=== PATIENT | female | born 1975 | race Caucasian/White ===

== ENCOUNTER → 2023-08-09 16:30 | Outpatient (REF) | payer OTHER, SELFPAY | LOC: RAD 16:30 | PROVIDERS: ATTENDING PHYSICIAN Student in an Organized Health Care Education/Training Program | DX: R22.31 Localized swelling, mass and lump, right upper limb (principal) | CPT/HCPCS: 76882 ==

== ENCOUNTER → 2023-11-20 15:40 | Outpatient (REF) | payer OTHER, SELFPAY | LOC: RAD 15:40 | PROVIDERS: ATTENDING PHYSICIAN Student in an Organized Health Care Education/Training Program | DX: M25.471 Effusion, right ankle (principal) | CPT/HCPCS: 93971 ==

== ENCOUNTER → 2023-12-21 19:14 | Outpatient (REF) | payer OTHER, SELFPAY | LOC: MRI 3T 19:14 | PROVIDERS: ATTENDING PHYSICIAN Orthopaedic Surgery; FAMILY PHYSICIAN Student in an Organized Health Care Education/Training Program | DX: M25.561 Pain in right knee (principal); M23.91 Unspecified internal derangement of right knee | CPT/HCPCS: 73721 ==

== ENCOUNTER 2024-01-02 06:32 | Outpatient (RCR) | payer OTHER, SELFPAY | END 2024-01-02 23:59 | disposition home or self-care (01) | LOC: RPT 06:32 | PROVIDERS: ATTENDING PHYSICIAN Orthopaedic Surgery; FAMILY PHYSICIAN Student in an Organized Health Care Education/Training Program | DX: M25.551 Pain in right hip (principal); Z73.6 Limitation of activities due to disability; R26.89 Other abnormalities of gait and mobility; M25.561 Pain in right knee; R20.0 Anesthesia of skin | CPT/HCPCS: 97010; 97110; 97162 ==

== ENCOUNTER 2024-01-16 06:34 | Outpatient (RCR) | payer OTHER, SELFPAY | END 2024-01-16 08:37 | disposition home or self-care (01) | LOC: RPT 06:34 | PROVIDERS: ATTENDING PHYSICIAN Orthopaedic Surgery; FAMILY PHYSICIAN Student in an Organized Health Care Education/Training Program | DX: M25.551 Pain in right hip (principal); Z73.6 Limitation of activities due to disability; R26.89 Other abnormalities of gait and mobility; M25.561 Pain in right knee | CPT/HCPCS: 97010; 97110 ==

== ENCOUNTER 2024-04-17 06:33 | Day surgery (SDC) | payer OTHER, SELFPAY ==
[2024-04-11 12:59] VITALS: BMI 46.7
[2024-04-17] VITALS (11 sets, daily range): BP systolic 133–172; BP diastolic 79–99; BMI 46.7
[2024-04-17] MEDS: TYLENOL 1000 MG PO (11:48)
[2024-04-17] MEDS: CELEBREX 200 MG PO (11:48)
[2024-04-17] MEDS: NORMOSOL-R/PLASMALYTE-A 1000 IV (12:49)
[2024-04-17] MEDS: SUBLIMAZE 50 MCG IV ×2 (14:56→15:06)
[2024-04-17] MEDS: ROXICODONE 5 MG PO (16:30)
== END 2024-04-17 18:19 | disposition home or self-care (01) ==
LOC: SDS 06:33
PROVIDERS: ATTENDING PHYSICIAN Orthopaedic Surgery; FAMILY PHYSICIAN Student in an Organized Health Care Education/Training Program
DX: S83.231A Complex tear of medial meniscus, current injury, right knee, initial encounter (principal); X58.XXXA Exposure to other specified factors, initial encounter; M94.261 Chondromalacia, right knee
CPT/HCPCS: 29881; 36415; 93005